=== PATIENT | female | born 1935 | race Caucasian/White ===

== ENCOUNTER → 2017-09-23 | Day surgery (SDC) | payer BC ==
[2017-09-22 12:11] VITALS: BMI 25.0
[~2017-09-23] VITALS: Ht 154.9 cm; Wt 60.0 kg
[~2017-09-23] MED LIST: ASPCH81X PO; ATOR-26 PO; CITA10TA4 PO; INSDGI SC; ISOS60TA2 PO; LIDOCAINE HCL 2% 2 ML VIAL (20MG/ML) ONE; LOSA1TAB38 PO; LYR50 PO; MAGN400T6 PO; MIDAZOLAM HCL 1 MG/ML 2ML VIAL ONE; MULT-506 PO; NTRGSL/4 UT; OMEP40CA41 PO; ONDANSETRON INJ 2 MG/ML 2 ML VIAL ONE; PROPOFOL IV EMULSION 10 MG/ML 20 ML VIAL IV ONE; REPA2TAB12 PO; SODIUM CHLORIDE 0.9% 500ML 500 ML IV ONE; SPIR25TA PO
[2017-09-23 09:31] VITALS: Ht 154.9 cm; Wt 60.0 kg
--- NOTE | 2017-09-23 09:47 | Endo History and Physical ---
History & Physical Date of Service: Sep 23, 2017. Chief Complaint: Referring Physician: History of Present Illness pt with iron def. anemia and heme + stool. Past Medical History Diabetes, Arthritis, Fractures, High Cholesterol, Heart Disease, CHF, Kidney Disease, CVA/TIA Past Surgical History Hx Cardiac Surgery: Yes (ENDARTARECTOMY ONE SIDE X2; HEART CATH X2, STENT X1) Hx Internal Defibrillator: No Hx Pacemaker: No Hx Abdominal Surgery: Yes (JESSICA, HYSTER) Hx of Implantable Prosthesis: No Hx Post-Op Nausea and Vomiting: No Hx Cancer Surgery: No Hx Thoracic Surgery: No Hx Orthopedic: Yes (BROKEN WRIST REPAIR) Hx Urinary Tract Surgery: No Family History None Social History Smoking Status: Former Smoker Hx Substance Use: No Hx Alcohol Use: No Allergies Coded Allergies: Estrogens (Verified Allergy, Unknown, ., 09/22/17) Morphine (Verified Allergy, Unknown, PER L MINARCHICK PAC WRITTEN ORDERS, 09/22/17) Sulfa Drugs (Verified Allergy, Unknown, RASH, 09/22/17) Codeine (Verified Adverse Reaction, Mild, AGITATION, CONFUSION "CANNOT CONTROL ACTIONS", 09/22/17) Current Medications Reported Home Medications Medications Dose Route/Sig Max Daily Dose Days Date Category Dose Instructions Lantus (Insulin Glargine) 100 Unit/Ml Inj 28 Units SC QAM 09/22/17 Reported Prandin (Repaglinide) 2 Mg Tab 2 Tabs PO QPM 09/22/17 Reported Imdur Ext Rel (Isosorbide Mononitrate) 60 Mg Tab 60 Mg PO BID 09/22/17 Reported Prandin (Repaglinide) 2 Mg Tab 2 Mg PO QAM 11/14/15 Reported Lyrica (Pregabalin) 50 Mg Cap 50 Mg PO BID 11/14/15 Reported Aldactone (Spironolactone) 25 Mg Tab 0.5 Mg PO QAM 12/20/13 Reported Prilosec (Omeprazole) 40 Mg Cap 2 Tabs PO QAM 12/02/13 Reported Aspirin Chewable (Aspirin) 81 Mg Chew 81 Mg PO QPM 12/02/13 Reported Citalopram Hydrobromide 10 Mg Tab 10 Mg PO QPM 02/25/13 Reported Cozaar (Losartan Potassium) 100 Mg Tab 100 Mg PO QAM 02/25/13 Reported Mag-Ox (Magnesium Oxide) 400 Mg Tab 400 Mg PO QAM 12/24/09 Reported Multivitamin (Multivitamins) Tab 1 Tablet PO DAILY 11/19/09 Reported Nitrostat (Nitroglycerin) 0.4 Mg Tab 0.4 Mg UT UD PRN 11/19/[address] ONE TABLET UNDER THE TONGUE EVERY 5 MINUTES IF NEEDED FOR CHEST PAIN.MAY REPEAT 3 TIMES. Lipitor (Atorvastatin Calcium) 80 Mg Tab 80 Mg PO QPM 11/19/09 Reported Vital Signs Weight (Kilograms): 60.00 Height (Feet): 5 Height (Inches): 1 Date Time Temp Pulse Resp B/P (MAP) Pulse Ox O2 Delivery O2 Flow Rate FiO2 09/23/17 09:33 36.0 65 18 116/68 (84) 98 Room Air Physical Exam General Appearance: no apparent distress Respiratory/Chest: Auscultation: breath sounds normal Cardiovascular: Heart Auscultation: pertinent finding (ectopy) Abdomen: Inspection & Palpation: soft Liver: non-tender Assessment and Plan stable for EGD/[facility]
--- NOTE | 2017-09-23 10:19 | Discharge Instructions ---
Endoscopy Patient Instructions Date / Procedure(s) Performed Sep 23, 2017. Colonoscopy, EGD Allergy Information Coded Allergies: Estrogens (Verified Allergy, Unknown, ., 09/22/17) Morphine (Verified Allergy, Unknown, PER L MINARCHICK PAC WRITTEN ORDERS, 09/22/17) Sulfa Drugs (Verified Allergy, Unknown, RASH, 09/22/17) Codeine (Verified Adverse Reaction, Mild, AGITATION, CONFUSION "CANNOT CONTROL ACTIONS", 09/22/17) Discharge Date / Findings Sep 23, 2017. Normal EGD/Colonoscopy Medication Instructions Stopped Medication(s): VITAMINS- LAST DOSE 09/21/17 Provider Instructions Activity Restrictions - No exercising or heavy lifting for 24 hours. - Do not drink alcohol the day of the procedure. - Do not drive a car or operate machinery until the day after the procedure. - Do not make any important decisions or sign important papers in 24 hours after the procedure. Following Day: - Return to full activity which may include returning to work/school. Diet Start your diet with liquids and light foods (jello, soup, juice, toast). Then eat your usual diet if not nauseated. Treatment For Common After Affects For mild abdominal pain, bloating, or excessive gas: - Rest - Eat lightly - Lie on right side Follow-Up Information Follow-up with as scheduled Anesthesia Information What You Should Know You have had a procedure that required some medicine to reduce anxiety and discomfort. This treatment is called moderate sedation. After receiving the treatment, you may be sleepy, but you will be able to breathe on your own. The effects of the treatment may last for several hours. Follow these instructions along with Activity/Diet recommendations noted above: * Do NOT do anything where dizziness or clumsiness would be dangerous. * Rest quietly at home today, then you can be up and about tomorrow. * Have a responsible person stay with you the rest of today. * You may have had an I.V. today. If so, you may take the dressing off later today. Recommendations Call your doctor if: * Trouble breathing * Continuous vomiting for more than 24 hours * Temperature above 101 degrees * Severe abdominal pain or bloating * Pain not relieved by pain medicine ordered * There is increased drainage or redness from any incision * A large amount of rectal bleeding greater than 2-3 tablespoons. (If you had a polyp/s removed or have hemorrhoids, a small amount of blood - from the rectum is to be expected.) * You have any unanswered questions or concerns. IN THE EVENT OF A SERIOUS EMERGENCY, GO TO THE NEAREST EMERGENCY ROOM Your discharge instructions were prepared by provider Darius Gay. Patient Instructions Signature Page Samara Enriquez Patient (or Guardian) Signature/Date: I have read and understand the instructions given to me by my caregivers. Caregiver/RN/Doctor Signature/Date: The above-named patient and/or guardian has received patient instructions on this date. + Original Patient Signature Page (only) stays with chart. Please make copy for patient.
--- NOTE | 2017-09-23 10:29 | Anesthesiology Progress Note ---
Anesthesia Post Op Note Date & Time Sep 23, 2017 at 10:29 Vital Signs Pain Intensity: 0 Vital Signs Past 12 Hours Date Time Temp Pulse Resp B/P (MAP) Pulse Ox O2 Delivery O2 Flow Rate FiO2 09/23/17 10:19 54 18 98/41 (60) 96 Room Air 09/23/17 09:33 36.0 65 18 116/68 (84) 98 Room Air Notes Mental Status: alert / awake / arousable, participated in evaluation Pt Amnestic to Procedure: Yes Nausea / Vomiting: adequately controlled Pain: adequately controlled Airway Patency, RR, SpO2: stable & adequate BP & HR: stable & adequate Hydration State: stable & adequate Anesthetic Complications: no major complications apparent
[2017-09-23 10:50] VITALS: BP 125/46; PULSE 55; O2SAT 95
--- NOTE | 2017-09-23 11:14 | GI REPORT ---
Procedure Date: 09/23/2017 9:42 AM Procedure: Upper GI endoscopy Indications: Iron deficiency anemia, Heme positive stool Medicines: See the Anesthesia note for documentation of the administered medications Complications: No immediate complications. Estimated Blood Loss: Estimated blood loss: none. Procedure: Pre-Anesthesia Assessment: - Prior to the procedure, a History and Physical was performed, and patient medications, allergies and sensitivities were reviewed. The patient's tolerance of previous anesthesia was reviewed. - The risks and benefits of the procedure and the sedation options and risks were discussed with the patient. All questions were answered and informed consent was obtained. - Patient identification and proposed procedure were verified prior to the procedure by the physician and the nurse. The procedure was verified in the pre-procedure area. - Pre-procedure physical examination revealed no contraindications to sedation. - After reviewing the risks and benefits, the patient was deemed in satisfactory condition to undergo the procedure. After obtaining informed consent, the endoscope was passed under direct vision. Throughout the procedure, the patient's blood pressure, pulse, and oxygen saturations were monitored continuously. The scope was introduced through the mouth, and advanced to the third part of duodenum. The upper GI endoscopy was accomplished without difficulty. The patient tolerated the procedure well. Findings: The esophagus was normal. The stomach was normal. The examined duodenum was normal. The cardia and gastric fundus were normal on retroflexion. Impression: - Normal esophagus. - Normal stomach. - Normal examined duodenum. - No specimens collected. Recommendation: - Perform a colonoscopy today. Darius Gay M.D. Darius Gay MD 09/23/2017 10:32:20 AM This report has been signed electronically. Note Initiated On: 09/23/2017 9:42 AM I attest to the content of the Intraoperative Record and orders documented therein, exceptions below
--- NOTE | 2017-09-23 11:14 | GI REPORT ---
Procedure Date: 09/23/2017 9:58 AM Procedure: Colonoscopy Indications: Heme positive stool, Iron deficiency anemia Medicines: See the Anesthesia note for documentation of the administered medications Complications: No immediate complications. Estimated Blood Loss: Estimated blood loss: none. Procedure: Pre-Anesthesia Assessment: - See the other procedure note for documentation of the pre-procedure assessment. After I obtained informed consent, the scope was passed under direct vision. Throughout the procedure, the patient's blood pressure, pulse, and oxygen saturations were monitored continuously. The Scope was introduced through the anus and advanced to the terminal ileum, with identification of the appendiceal orifice and IC valve. The colonoscopy was performed without difficulty. The patient tolerated the procedure well. The quality of the bowel preparation was good. Findings: The perianal and digital rectal examinations were normal. The terminal ileum appeared normal. The entire examined colon appeared normal on direct and retroflexion views. Impression: - The examined portion of the ileum was normal. - The entire examined colon is normal on direct and retroflexion views. - No specimens collected. Recommendation: - Discharge patient to home. - I do not recommend a repeat screening colonoscopy in 10 years. Darius Gay M.D. Darius Gay MD 09/23/2017 10:42:21 AM This report has been signed electronically. Note Initiated On: 09/23/2017 9:58 AM I attest to the content of the Intraoperative Record and orders documented therein, exceptions below
== END | disposition home or self-care (01) ==
LOC: C.GI 09:13
PROVIDERS: ATTEND Internal Medicine Gastroenterology
DX: D50.9 Iron deficiency anemia, unspecified (principal); I25.119 Atherosclerotic heart disease of native coronary artery with unspecified angina pectoris; E78.00 Pure hypercholesterolemia, unspecified; K21.9 Gastro-esophageal reflux disease without esophagitis; E11.9 Type 2 diabetes mellitus without complications; N18.9 Chronic kidney disease, unspecified; Z86.73 Personal history of transient ischemic attack (TIA), and cerebral infarction without residual deficits; Z90.49 Acquired absence of other specified parts of digestive tract; Z90.710 Acquired absence of both cervix and uterus; Z87.891 Personal history of nicotine dependence; Z79.82 Long term (current) use of aspirin